=== PATIENT | male | born 1990 | race Caucasian/White ===

== ENCOUNTER 2022-06-28 11:54 | Emergency (ER) | payer OTHER ==
[~2022-06-28] VITALS: Ht 175.3 cm; Wt 83.9 kg
[2022-06-28] MEDS ORDERED: PRED50TA PO (12:24)
[2022-06-28] MEDS ORDERED: ACYC400T19 PO (12:24)
--- NOTE | 2022-06-28 12:30 | NUR ---
Patient discharged to home in stable condition. Written and verbal after care instructions given. Patient verbalizes understanding of instruction. Prescription given to patient.
[2022-06-28 12:32] VITALS: BP 140/92
== END 2022-06-28 12:32 | disposition home or self-care (01) ==
LOC: ER 12:02
DX: G51.0 Bell's palsy (principal); Z79.899 Other long term (current) drug therapy